=== PATIENT | female | born 1955 | race Caucasian/White ===

== ENCOUNTER 2018-01-03 20:11 | Emergency (ER) | payer BC, OTHER ==
[~2018-01-03] VITALS: Ht 154.9 cm; Wt 70.0 kg
[~2018-01-03 20:11] MED LIST: ALBU6.7H3 IH; BECL8.7A3 IH; FAMO-1 PO; HYDR-3965 PO; PHEN-786 PO; ZOLP5TAB8 PO
[2018-01-03 20:59] LABS: BASOPHILS # (AUTO) 0.1 X10'3 (0-0.2); BASOPHILS % (AUTO) 1.4 % (0-1); EOSINOPHILS # (AUTO) 0.3 X10'3 (0-0.9); EOSINOPHILS % (AUTO) 4.2 % (0-6); HEMOGLOBIN 15.5 g/dl (12.0-16.0); LYMPHOCYTES # (AUTO) 2.2 X10'3 (1.1-4.8); LYMPHOCYTES % (AUTO) 30.2 % (21-51); MEAN CORPUSCULAR HEMOGLOBIN 30.4 PG (27.0-31.0); MEAN CORPUSCULAR HGB CONC 34.4 % (33.0-36.5); MEAN CORPUSCULAR VOLUME 88.5 FL (78-98); MEAN PLATELET VOLUME 7.8 FL (7.4-10.4); MONOCYTES # (AUTO) 0.5 X10'3 (0-0.9); MONOCYTES % (AUTO) 6.5 % (2-12); NEUTROPHILS # (AUTO) 4.2 X10'3 (1.8-7.7); NEUTROPHILS % (AUTO) 57.7 % (42-75); PLATELET COUNT 269 X10'3 (140-440); RED BLOOD COUNT 5.08 X10'6 (4.20-5.60); RED CELL DISTRIBUTION WIDTH 13.8 % (11.5-14.5); WHITE BLOOD COUNT 7.3 X10'3 (4.5-11.0)
[2018-01-03 21:11] LABS: INR 0.9 INR; PARTIAL THROMBOPLASTIN TIME 26 SECONDS (22-32); PROTHROMBIN TIME 9.4 SECONDS (9.0-12.0)
[2018-01-03 21:14] LABS: ALANINE AMINOTRANSFERASE 24 U/L (12-78); ALBUMIN/GLOBULIN RATIO 1.2 (1.1-1.5); ALKALINE PHOSPHATASE 65 IU/L (46-116); ANION GAP 13 (8-16); ASPARTATE AMINO TRANSFERASE 15 U/L (10-37); BILIRUBIN,TOTAL 0.3 MG/DL (0.1-1.0); BLOOD UREA NITROGEN 17 MG/DL (7-18); BUN/CREATININE RATIO 17.2 (6.6-38.0); CALCIUM 8.9 MG/DL (8.5-10.1); CHLORIDE 99 MMOL/L (99-107); CREATININE 0.99 MG/DL (0.40-0.90); GLUCOSE 102 MG/DL (70-104); SODIUM 135 MMOL/L (135-145); TOTAL CARBON DIOXIDE 22.7 MMOL/L (24-32); TOTAL PROTEIN 7.4 G/DL (6.4-8.2); eGFR 57 ML/MIN
[2018-01-03 22:02] VITALS: BP 126/80
== END 2018-01-03 23:02 | disposition left against medical advice (07) ==
LOC: ER 20:12
DX: R42 Dizziness and giddiness (principal); Z53.21 Procedure and treatment not carried out due to patient leaving prior to being seen by health care provider
CPT/HCPCS: 36415; 71045; 80053; 82948; 84484; 85025; 85610; 85730; 93005; 99281

== ENCOUNTER 2021-05-24 16:55 | Emergency (ER) | payer BC ==
[~2021-05-24] VITALS: Ht 154.9 cm; Wt 69.4 kg
[2021-05-24 17:08] VITALS: BP 125/52
== END 2021-05-24 18:15 | disposition home or self-care (01) ==
LOC: ER 16:56
DX: J06.9 Acute upper respiratory infection, unspecified (principal); E78.00 Pure hypercholesterolemia, unspecified; Z79.899 Other long term (current) drug therapy
CPT/HCPCS: 99281

== ENCOUNTER 2022-02-04 16:10 | Emergency (ER) | payer MEDICARE, BC ==
[~2022-02-04] VITALS: Ht 154.9 cm; Wt 68.0 kg
[2022-02-04 16:19] VITALS: BP 136/64
[2022-02-04 16:45] LABS: BASOPHILS # (AUTO) 0.1 X10'3 (0-0.2); BASOPHILS % (AUTO) 1.2 % (0-1); EOSINOPHILS % (AUTO) 0.4 % (0-6); HEMATOCRIT 42.9 % (35.0-45.0); HEMOGLOBIN 14.6 g/dl (12.0-16.0); LYMPHOCYTES # (AUTO) 1.7 X10'3 (1.1-4.8); LYMPHOCYTES % (AUTO) 26.3 % (21-51); MEAN CORPUSCULAR HEMOGLOBIN 29.9 PG (27.0-31.0); MEAN CORPUSCULAR VOLUME 88.2 FL (78-98); MEAN PLATELET VOLUME 7.8 FL (7.4-10.4); MONOCYTES # (AUTO) 0.5 X10'3 (0-0.9); MONOCYTES % (AUTO) 7.4 % (2-12); NEUTROPHILS # (AUTO) 4.3 X10'3 (1.8-7.7); NEUTROPHILS % (AUTO) 64.7 % (42-75); PLATELET COUNT 211 X10'3 (140-440); RED BLOOD COUNT 4.86 X10'6 (4.20-5.60); RED CELL DISTRIBUTION WIDTH 13.1 % (11.5-14.5); WHITE BLOOD COUNT 6.6 X10'3 (4.5-11.0)
[2022-02-04 17:05] LABS: ALANINE AMINOTRANSFERASE 32 U/L (12-78); ALBUMIN 3.9 G/DL (3.4-5.0); ALBUMIN/GLOBULIN RATIO 1.1 (1.1-1.5); ALKALINE PHOSPHATASE 72 IU/L (46-116); ANION GAP 10 (8-16); ASPARTATE AMINO TRANSFERASE 18 U/L (10-37); BILIRUBIN,TOTAL 0.3 MG/DL (0.1-1.0); BLOOD UREA NITROGEN 12 MG/DL (7-18); BUN/CREATININE RATIO 10.7 (6.6-38.0); CALCIUM 8.8 MG/DL (8.5-10.1); CHLORIDE 101 MMOL/L (99-107); CREATININE 1.12 MG/DL (0.40-0.90); GLUCOSE 117 MG/DL (70-104); POTASSIUM 3.7 MMOL/L (3.5-5.1); SODIUM 137 MMOL/L (135-145); TOTAL CARBON DIOXIDE 25.7 MMOL/L (24-32); TOTAL PROTEIN 7.3 G/DL (6.4-8.2); eGFR 49 ML/MIN
== END 2022-02-04 23:10 | disposition home or self-care (01) ==
LOC: ER 16:11
DX: U07.1 COVID-19 (principal); E78.00 Pure hypercholesterolemia, unspecified; F17.200 Nicotine dependence, unspecified, uncomplicated; Z79.899 Other long term (current) drug therapy
CPT/HCPCS: 36415; 71045; 80053; 83880; 84484; 85025; 93005; 99285

== ENCOUNTER 2024-05-23 07:09 | Day surgery (SDC) | payer MEDICARE, BC ==
[2024-05-23] VITALS (10 sets, daily range): BP systolic 94–113; BP diastolic 50–71; PULSE 54–72; RESP 11–17; TEMP 98.2; O2SAT 93–99
[~2024-05-23] VITALS: Ht 154.9 cm; Wt 74.2 kg
[2024-05-23] MEDS ORDERED: OXCA150T14 PO (07:50)
[2024-05-23] MEDS ORDERED: LORA-268 PO (07:53)
[2024-05-23] MEDS ORDERED: ZOLP10TA PO (07:54)
[2024-05-23] MEDS ORDERED: ONDA-103 PO (07:54)
[2024-05-23] MEDS ORDERED: PANT40TA54 PO (07:55)
[2024-05-23] MEDS ORDERED: ACET-1008 PO (07:57)
[2024-05-23] MEDS ORDERED: NITR0.4T51 SL (07:58)
[2024-05-23] MEDS ORDERED: ATOR-2 PO (07:59)
[2024-05-23] MEDS ORDERED: DOCU-395 PO (08:00)
[2024-05-23 08:14] LABS: ALBUMIN 3.8 G/DL (3.4-5.0); ANION GAP 9 (8-16); BASOPHILS # (AUTO) 0.1 X10'3 (0-0.2); BASOPHILS % (AUTO) 1.3 % (0-1); BLOOD UREA NITROGEN 10 MG/DL (7-18); BUN/CREATININE RATIO 14.1 (10.0-20.0); CALCIUM 8.5 MG/DL (8.5-10.1); CHLORIDE 102 MMOL/L (99-107); CREATININE 0.71 MG/DL (0.40-0.90); EOSINOPHILS # (AUTO) 0.3 X10'3 (0-0.9); EOSINOPHILS % (AUTO) 6.2 % (0-6); GLUCOSE 91 MG/DL (70-104); HEMATOCRIT 40.2 % (35.0-45.0); LYMPHOCYTES # (AUTO) 1.7 X10'3 (1.1-4.8); LYMPHOCYTES % (AUTO) 33.5 % (21-51); MEAN CORPUSCULAR HEMOGLOBIN 30.2 PG (27.0-31.0); MEAN CORPUSCULAR HGB CONC 34.9 g/dL (33.0-36.5); MEAN CORPUSCULAR VOLUME 86.5 FL (78-98); MEAN PLATELET VOLUME 7.9 FL (7.4-10.4); MONOCYTES # (AUTO) 0.3 X10'3 (0-0.9); MONOCYTES % (AUTO) 6.9 % (2-12); NEUTROPHILS # (AUTO) 2.6 X10'3 (1.8-7.7); NEUTROPHILS % (AUTO) 52.1 % (42-75); PLATELET COUNT 216 X10'3 (140-440); POTASSIUM 4.1 MMOL/L (3.5-5.1); RED BLOOD COUNT 4.65 X10'6 (4.20-5.60); RED CELL DISTRIBUTION WIDTH 13.4 % (11.5-14.5); SODIUM 135 MMOL/L (135-145); TOTAL CARBON DIOXIDE 24.2 MMOL/L (24-32); eCRCL 58 ML/MIN; eGFR 82 ML/MIN
[2024-05-23 08:15] LABS: PROTHROMBIN TIME 10.2 SECONDS (9.0-12.0)
[2024-05-23] MEDS: normal saline 1,000 ML IV SCH (08:48)
[2024-05-23] MEDS: diphenhydrAMINE 25mg capsule PO PRN (08:48)
[2024-05-23] MEDS: sodium bicarbonate 1meq/ml syr 150 ML in dextrose 5%-water 1,000 ML IV ONE (08:48)
[2024-05-23] MEDS ORDERED: iohexol 350MG/ML 100ml bottle IV ONE (08:55)
[2024-05-23] MEDS ORDERED: LIDOcaine 1% (10mg/ml) 2ml vial ONE (08:55)
[2024-05-23] MEDS ORDERED: iohexol 350 MG/ML 50ML vial IV ONE (08:55)
[2024-05-23] MEDS ORDERED: heparin 1,000unit/ml 10ml vial 10 ML ONE (08:55)
[2024-05-23] MEDS ORDERED: verapamil 2.5 mg/ml inj IV ONE (08:55)
[2024-05-23] MEDS ORDERED: nitroGLYCERIN 500mcg/5mL D5W 5 ML IV ONE (08:56)
[2024-05-23] MEDS ORDERED: midazolam 1 mg/ML 2ml injection ONE ×2 (09:59→10:11)
[2024-05-23] MEDS ORDERED: fentaNYL/PF 50MCG/1 ML 2ML syringe ONE (09:59)
[2024-05-23] MEDS ORDERED: HYDROmorphone 1 mg/ml syringe ONE (10:07)
[2024-05-23] MEDS ORDERED: proCHLORperazine 10 MG/2 ml inj IV PRN (11:10)
[2024-05-23] MEDS ORDERED: HYDROcodone/acetaminophen 5mg/325mg tablet PO PRN (11:10)
[2024-05-23] MEDS ORDERED: ondansetron/PF 4mg/2ml inj IV PRN (11:10)
[2024-05-23] MEDS: HYDROcodone/acetaminophen 10/325mg tab PO PRN (11:49)
== END 2024-05-23 14:00 | disposition home or self-care (01) ==
LOC: SSTAY O 07:09
PROVIDERS: ATTEND Internal Medicine Cardiovascular Disease
DX: R07.89 Other chest pain (principal); Z79.899 Other long term (current) drug therapy
CPT/HCPCS: 36415; 80048; 83735; 85025; 85610; 93005; 93458; 99152; A6258; A6402; C1769; C1894; J1171; J1644; J2003; J2250; J3010; J3490; J7030; J7070; Q0163; Q9967; Z7610; 99153

== ENCOUNTER 2025-01-12 09:37 | Outpatient (CLI) | payer MEDICARE, OTHER ==
[~2025-01-12 09:37] MED LIST changes: +ACET-1008 PO; -ALBU6.7H3 IH; +ATOR-2 PO; -BECL8.7A3 IH; +DOCU-395 PO; -FAMO-1 PO; -HYDR-3965 PO; +LORA-268 PO; +NITR0.4T51 SL; +ONDA-103 PO; +OXCA150T14 PO; +PANT40TA54 PO; -PHEN-786 PO; +ZOLP-679 PO; -ZOLP5TAB8 PO
--- NOTE | 2025-01-12 12:21 | RADIOLOGY REPORT ---
Technique: Real-time ultrasound imaging of the abdomen was performed with grayscale and color Doppler. Indication: LEFT UPPER QUADRANT PAIN Comparison: None Findings: Liver measures 14.7 cm. It is increased in echogenicity and echotexture without focal mass. Portal vein is normal in caliber and demonstrates normal hepatopetal flow. Gallbladder demonstrates no evidence for cholelithiasis. There is no pericholecystic fluid. The wall thickness is normal. The common bile duct measures 3 mm. No intrahepatic biliary ductal dilatation. The right kidney measures 9.8 cm. The left kidney measures 9.4 cm. No hydronephrosis or sonographic evidence of nephrolithiasis. The visualized portion of the pancreas is unremarkable. Spleen measures 9.5 cm. The visualized portion of the IVC is unremarkable. Impression: Echogenic liver which can be seen with hepatic steatosis, cirrhosis. No sonographic evidence for cholelithiasis.
== END 2025-01-12 23:59 | disposition home or self-care (01) ==
LOC: RAD 09:37
PROVIDERS: ATTEND Nurse Practitioner Family
DX: K76.0 Fatty (change of) liver, not elsewhere classified (principal); R10.12 Left upper quadrant pain; K74.60 Unspecified cirrhosis of liver
CPT/HCPCS: 76700